=== PATIENT | female | born 1980 | race Caucasian/White ===

== ENCOUNTER 2023-08-03 16:24 | Emergency (ER) | payer MEDICAID ==
[~2023-08-03] VITALS: Ht 167.6 cm; Wt 114.0 kg
[2023-08-03 16:43] VITALS: O2SAT 97
[2023-08-03] MEDS ORDERED: CEPH500C2 MT (20:10)
[2023-08-03] MEDS ORDERED: SULF1TAB48 MT (20:10)
[2023-08-03] MEDS ORDERED: IBUP-2029 MT (20:10)
[2023-08-03 20:28] VITALS: BP 112/78; PULSE 96; RESP 18; TEMP 98
== END 2023-08-03 20:29 | disposition home or self-care (01) ==
LOC: ER 16:24
DX: L02.31 Cutaneous abscess of buttock (principal); E11.9 Type 2 diabetes mellitus without complications; Z98.890 Other specified postprocedural states
CPT/HCPCS: 99283

== ENCOUNTER 2025-07-15 12:12 | Emergency (ER) | payer MEDICAID ==
[~2025-07-15] VITALS: Ht 160 cm; Wt 114.0 kg
[~2025-07-15 12:12] MED LIST: CEPH500C2 MT; IBUP-1455 MT; SULF1TAB48 MT
[2025-07-15 12:19] VITALS: O2SAT 98
[2025-07-15 13:40] LABS: BASOPHILS % 0.4 % (0.0-2.0); EOSINOPHILS % 2.0 % (0.0-5.0); HEMATOCRIT. 45.9 % (36.0-48.0); HEMOGLOBIN. 15.8 g/dL (12.0-16.0); LYMPHOCYTES % 19.9 % (20.0-50.0); MEAN PLATELET VOLUME 8.7 fl (7.4-10.4); MONOCYTES % 6.0 % (2.0-8.0); NEUTROPHILS % 71.7 % (40.0-76.0); PLATELET 187 x1000/uL (130-400); RED BLOOD CELL COUNT 5.22 mill/uL (4.2-5.4); RED CELL DISTRIBUTION WIDTH 13.4 % (11.6-14.6)
[2025-07-15 13:52] LABS: CREATININE 0.7 mg/dL (0.6-1.0); UREA NITROGEN BLOOD 9 mg/dL (9-23)
[2025-07-15] MEDS ORDERED: CEPH500T MT (14:52)
[2025-07-15] MEDS ORDERED: MUPI22OI2 TP (14:52)
[2025-07-15] MEDS ORDERED: METF-414 MT (14:52)
[2025-07-15 15:52] VITALS: BP 170/96; PULSE 84; RESP 18; TEMP 36.8; O2SAT 100
== END 2025-07-15 15:52 | disposition home or self-care (01) ==
LOC: ER 12:12
DX: E11.628 Type 2 diabetes mellitus with other skin complications (principal); E11.65 Type 2 diabetes mellitus with hyperglycemia; Z79.84 Long term (current) use of oral hypoglycemic drugs; Z98.890 Other specified postprocedural states
CPT/HCPCS: 36415; 73630; 80048; 82962; 85025; 99284